=== PATIENT | female | born 1975 | race Caucasian/White ===

== ENCOUNTER 2018-12-05 00:09 | Emergency (ER) | payer OTHER ==
[~2018-12-05] VITALS: Ht 170.2 cm; Wt 90.7 kg
[~2018-12-05 00:09] MED LIST: ACEBUTCAFT; ACEBUTCAFT PO; Buspirone HCl30 MG PO; CYCL10 PO; Coreg12.5 MG PO; Cyclobenzaprine5 MG PO; EXTRA STRENGTH500 MG PO; Esgic Tablet1 EACH PO; FAMO40 PO; GABA300 PO; HYDACE5 PO; HYDACE5325 PO; HYDPAM50 PO; IBUP400 PO; IBUP800; Naproxen500 MG PO; OXCA300 PO; OXYACE5T; OXYACE5T PO; OXYC5 PO; Omeprazole20 M1 PO; PRED10 PO; PROM25 PO; PSEU120ER PO; RXCYCL10 PO; RXHYD5325 PO; RXOXYACE PO; RXTRAM50 PO; TOPI100 PO; TOPI50 PO; TRAM50 PO; Ultram50 MG PO; VENL75ER PO; Ventolin/Prove6.7 GM INH; [UNRECOGNIZED DRUG - REMARK]
[2018-12-05 00:26] LABS: BASOPHILS ABSOLUTE AUTO 0.04 K/mm3 (0.00-0.23); BASOPHILS PERCENT AUTO 0 % (0-2); EOSINOPHILS ABSOLUTE AUTO 0.12 K/mm3 (0.00-0.68); EOSINOPHILS PERCENT AUTO 1 % (0-6); Hematocrit 43.5 % (33.0-51.0); Hemoglobin 14.8 g/dL (11.5-16.0); IMMATURE GRAN ABSOLUTE AUTO 0.17 K/mm3 (0.00-0.10); IMMATURE GRAN PERCENT AUTO 1 % (0-1); LYMPHOCYTES ABSOLUTE AUTO 2.05 K/mm3 (0.84-5.20); LYMPHOCYTES PERCENT AUTO 17 % (21-46); MONOCYTES ABSOLUTE AUTO 0.68 K/mm3 (0.16-1.47); MONOCYTES PERCENT AUTO 6 % (4-13); Mean Corpuscular HGB 28.1 pg (26.0-34.0); Mean Corpuscular Volume 83 fL (80-100); Mean Platelet Volume 10.5 fL (9.1-12.4); NEUTROPHILS ABSOLUTE AUTO 8.98 K/mm3 (1.96-9.15); NEUTROPHILS PERCENT AUTO 75 % (41-73); Platelet Count 247 K/mm3 (150-400); RDW Coefficient Variation 13.3 % (11.7-14.2); RDW Standard Deviation 39.9 fL (35.1-46.3); Red Blood Cell Count 5.27 M/mm3 (3.80-5.20); White Blood Cell Count 12.04 K/mm3 (4.00-11.30)
[2018-12-05 00:42] LABS: International Normalized Ratio 0.92; Prothrombin Time Results 9.8 Sec (9.7-11.5)
[2018-12-05 00:45] LABS: Alanine Aminotransfer (ALT/SGP 19 U/L (12-78); Albumin, Blood 3.9 g/dL (3.4-5.0); Alk Phos 84 U/L (50-136); Anion Gap 8 mmol/L (6-16); Aspartate Aminotrans (AST/SGOT 23 U/L (12-37); Bilirubin, Total 0.4 mg/dL (0.1-1.0); Blood Urea Nitrogen 23 mg/dL (8-24); Bun/Creatinine Ratio 24.6 (12.0-20.0); CO2, Blood 25 mmol/L (21-32); Calcium, Blood 8.7 mg/dL (8.5-10.1); Chloride, Blood 106 mmol/L (98-108); Creatinine, Blood 0.94 mg/dL (0.40-1.00); Ethanol (Alcohol), Blood, Med <3 mg/dL; Globulin, Blood 3.8 g/dL (2.2-4.0); Glomerular Filtration Rate >60 (60-); Glucose, Blood 103 mg/dL (70-99); Potassium, Blood 3.5 mmol/L (3.5-5.5); Sodium, Blood 139 mmol/L (136-145); Total Protein, Blood 7.7 g/dL (6.4-8.2)
[2018-12-05 01:15] LABS: Source, Urine Catheter
[2018-12-05 01:17] LABS: Appearance, Urine Clear (Clear); Bilirubin, Urine Neg (Neg); Blood, Urine 2+ (Neg); Color, Urine Yellow (P-Yellow); Glucose Qualitative, Urine Neg (Neg); Ketones, Urine 2+ (Neg); Leukocyte Esterase, Urine Neg (Neg); Nitrite, Urine Neg (Neg); Protein, Urine 2+ (Neg); Specific Gravity, Urine 1.015 (1.003-1.022); Urobilinogen, Urine NORM (Normal)
[2018-12-05] MEDS ORDERED: CLON.1 PO (01:17)
[2018-12-05] MEDS ORDERED: LATUDA80 MG PO (01:17)
[2018-12-05 01:25] LABS: Amorphous Light (0-Heavy); Bacteria Mod /hpf; Red Blood Cells, Urine 0-2 /hpf (0-2); Squamous Epithelial Cells Few /hpf (Few)
[2018-12-05 01:26] LABS: Calcium Oxalate Crystals Mod /hpf
[2018-12-05 01:46] LABS: U Amphetamine Screen DETECTED; U Barbituate Screen Not Detected; U Benzodiazapine Screen Not Detected; U Buprenorphine Screen Not Detected; U Cannabinoids Screen Not Detected; U Cocaine Screen Not Detected; U Methadone Screen Not Detected; U Methamphetamine Screen Not Detected; U Opiates Screen Not Detected; U Oxycodone Screen Not Detected; U Phencyclidine Screen Not Detected; U Propoxyphene Screen Not Detected
[2018-12-05] MEDS ORDERED: CEPH500 PO (02:14)
[2018-12-05] MEDS ORDERED: IBUP600 PO (02:14)
== END 2018-12-05 04:09 | disposition left against medical advice (07) ==
LOC: ER 00:09
PROVIDERS: Emergency Medicine
DX: S32.049A Unspecified fracture of fourth lumbar vertebra, initial encounter for closed fracture (principal); S32.019A Unspecified fracture of first lumbar vertebra, initial encounter for closed fracture; S81.012A Laceration without foreign body, left knee, initial encounter; S00.03XA Contusion of scalp, initial encounter; S70.312A Abrasion, left thigh, initial encounter; V89.2XXA Person injured in unspecified motor-vehicle accident, traffic, initial encounter; Z91.040 Latex allergy status; Z88.8 Allergy status to other drugs, medicaments and biological substances; Z79.899 Other long term (current) drug therapy; G43.909 Migraine, unspecified, not intractable, without status migrainosus; I10 Essential (primary) hypertension; F41.9 Anxiety disorder, unspecified; F43.10 Post-traumatic stress disorder, unspecified; J45.909 Unspecified asthma, uncomplicated; F17.210 Nicotine dependence, cigarettes, uncomplicated
CPT/HCPCS: 12002; 70450; 71260; 72125; 73020; 73562-LT; 74177; 80053; 81001; 81025; 83690; 85025; 85610; 85730; 86850; 86900; 86901; 87086; 90471; 90714; 93005; 93010; 96361-59; 96365-59; 96375-59; 96376-59; 99285-25; A9270; G0480; J0690; J2405; J3010; J7030; P9612; Q9967

== ENCOUNTER 2019-02-13 09:43 | Day surgery (SDC) | payer OTHER ==
[~2019-02-13 09:43] MED LIST changes: +CEPH500 PO; +CLON.1 PO; +IBUP600 PO; +LATUDA80 MG PO
[2019-02-13 11:11] LABS: Performing Lab VERACYTE; Test Name FNA
[2019-02-19 19:36] LABS: Result SEE PATHOTH RESULTS
== END 2019-02-13 22:39 | disposition home or self-care (01) ==
LOC: US 09:43
PROVIDERS: Registered Nurse
DX: E04.1 Nontoxic single thyroid nodule (principal)
CPT/HCPCS: 10005

== ENCOUNTER 2023-12-19 20:09 | Emergency (ER) | payer OTHER ==
[~2023-12-19] VITALS: Ht 170.2 cm; Wt 97.5 kg
[~2023-12-19 20:09] MED LIST changes: +Norco 5-325 Ta1 EACH PO
[2023-12-19 20:50] VITALS: BP 156/113
[2023-12-19] MEDS ORDERED: HYDROcodone 5-APAP 325 TAB PO ONE (22:15)
[2023-12-19] MEDS ORDERED: Ketorolac Tromethamine 15mg Vial IM ONE (22:15)
== END 2023-12-19 22:49 | disposition home or self-care (01) ==
LOC: ER 20:09
DX: M79.81 Nontraumatic hematoma of soft tissue (principal); I10 Essential (primary) hypertension; Z87.891 Personal history of nicotine dependence; Z88.0 Allergy status to penicillin; Z88.6 Allergy status to analgesic agent; Z91.040 Latex allergy status; Z79.899 Other long term (current) drug therapy
CPT/HCPCS: 93971; 96372; 99283-25; A9270; J1885

== ENCOUNTER → 2024-08-08 | Outpatient (CLI) | payer OTHER | LOC: LAB SHORT 08:04 → PLD 08:04 | DX: L72.12 Trichodermal cyst (principal); R22.0 Localized swelling, mass and lump, head | CPT/HCPCS: 88304 ==

== ENCOUNTER 2024-12-31 07:03 | Emergency (ER) | payer MEDICARE, OTHER ==
[~2024-12-31] VITALS: Ht 170.2 cm; Wt 99.8 kg
[2024-12-31 08:12] VITALS: BP 149/110
[2024-12-31] MEDS ORDERED: Voltaren100 GM TOP (08:17)
[2024-12-31] MEDS ORDERED: GABA300 PO (08:17)
== END 2024-12-31 08:21 | disposition home or self-care (01) ==
LOC: ER 07:03
DX: M25.551 Pain in right hip (principal); G89.29 Other chronic pain; I10 Essential (primary) hypertension; J45.909 Unspecified asthma, uncomplicated; F17.210 Nicotine dependence, cigarettes, uncomplicated; Z88.0 Allergy status to penicillin; Z88.6 Allergy status to analgesic agent; Z91.040 Latex allergy status; Z79.899 Other long term (current) drug therapy
CPT/HCPCS: 73502; 99283-25; A9270